=== PATIENT | male | born 1985 | race Caucasian/White ===

== ENCOUNTER 2018-07-18 23:30 | Emergency (ER) | payer OTHER, SELFPAY ==
[2018-07-18 23:32] VITALS: BP 141/79; PULSE 76; RESP 15; TEMP 36.7; BMI 30.5
[2018-07-19] MEDS: DiphenhydrAMINE 50 MG/ML Syringe 25 MG IV (00:31)
[2018-07-19] MEDS: Metoclopramide 10 MG/2 ML Vial 5 MG IV (00:32)
--- NOTE | 2018-07-19 00:39 | ED.VISSUMM ---
- ER Visit Summary Date of Service: 07/19/18 Chief Complaint: Headache, neck pain History of Present Illness: The patient is a 33 M presents with headache, neck pain. He states this has been ongoing for the past 3 days. Headache was gradual in onset and is mild. States it is currently 1 out of 10. Complains of stiffness in his neck and pain with range of motion. He denies any trauma. Denies fever or feeling ill. Denies other complaints. Physical Examination: Vitals are stable. Patient is afebrile. Alert no acute distress. Nontoxic. HEENT exam is unremarkable. Neck is supple. No meningismus. Mild left-sided paraspinal muscle tenderness. Lungs are clear and equal bilaterally. Heart is regular rate and rhythm. Abdomen is soft nontender nondistended. Extremities are unremarkable. Skin is warm and dry. No focal neurologic deficit. Remainder of exam is unremarkable. Emergency Department Course and Treatment: Patient given Reglan, Benadryl IV. CTA head and neck showed no acute process. On reevaluation, patient is feeling improved. Patient declines LP. At this time I do not feel it is necessary. Discussed signs and symptoms for which to return to the ED. He understands and will follow up with his primary care physician. He will return to ED for worsening complaints. Disposition: Discharge home Impression: Headache, resolved This note was generated with [employer] dictation software. It may contain incorrect words, spelling, and punctuation that were not noted in review of the chart prior to signing ED Disposition - Plan for ED Patient: Chief Complaint: Other, Pain/Inj Instructions: ED Cephalgia Unspecified Referrals: Carlos Rey MD [Primary Care Provider] -
--- NOTE | 2018-07-19 03:09 | ED.DEP ---
ED Disposition - Plan for ED Patient: Chief Complaint: Other, Pain/Inj Instructions: ED Cephalgia Unspecified Referrals: Carlos Rey MD [Primary Care Provider] -
[2018-07-19 03:16] VITALS: BP 132/84; PULSE 72; RESP 16; O2SAT 100
--- NOTE | 2018-07-19 23:59 | CT_ITS ---
HISTORY: PT STATED NECK STIFFNESS AND MILD HEADACHE FOR SEVERAL DAYS TECHNIQUE: Routine carotid CT angiogram protocol was performed without and with IV contrast. Nascet criteria using the distal ICAs for comparison were used for evaluation of stenoses. 3D reconstructions were reviewed. A radiation dose optimization technique was used for this scan. IV Contrast dosage and agent: 100 cc Isovue 370 contrast COMPARISON: None FINDINGS: AORTIC ARCH AND BRANCHES: Normal anatomy, patent. RIGHT CCA: No occlusion, significant stenosis or dissection. RIGHT ICA: No occlusion, significant stenosis or dissection. LEFT CCA: No occlusion, significant stenosis or dissection. LEFT ICA: No occlusion, significant stenosis or dissection. RIGHT VERTEBRAL ARTERY: No occlusion, significant stenosis or dissection. LEFT VERTEBRAL ARTERY: No occlusion, significant stenosis or dissection. NECK SOFT TISSUES: Unremarkable. BONES: Unremarkable. CT/CTA Neck W/WO Contrast IMPRESSION: Unremarkable CT angiogram of the neck. No suspicious findings. Individualized dose optimization techniques were used for this CT. at 0209 Reported and signed by: Wilmer Johnson MD Electronically Signed: Wilmer Johnson, at 2:07 EST Tel , Service support ,
--- NOTE | 2018-07-19 23:59 | CT_ITS ---
Exam: CTA brain without and with contrast HISTORY: PT STATED NECK STIFFNESS AND MILD HEADACHE FOR SEVERAL DAYS TECHNIQUE: Routine [place]/brain CT angiogram protocol was performed before and following IV contrast. 3D reconstructions were reviewed. A radiation dose optimization technique was used for this scan. IV Contrast dosage and agent: 100 cc Isovue 370 contrast COMPARISON: None FINDINGS: The ventricles are normal in size. Normal aparicio-white matter differentiation. No intracranial mass, hemorrhage, or acute disease. Posterior fossa structures are unremarkable. No suspicious extra-axial fluid collection. Following contrast injection, no pathologic enhancement or suspicious lesion. As visualized, the mastoids and paranasal sinuses are clear. CTA brain and [place]: Normal opacification and filling of the carotid and vertebrobasilar systems. The vertebral arteries are codominant. Normal filling of the anterior, middle, and posterior screw were arteries. No vascular malformation, aneurysm, or vessel occlusion. CT/CTA Head W/WO Contrast IMPRESSION: 1. Normal CT brain without and with contrast. 2. No arterial dissection, vessel occlusion, or aneurysm. Individualized dose optimization techniques were used for this CT. at 0203 Reported and signed by: Wilmer Johnson MD Electronically Signed: Wilmer Johnson, at 2:01 EST Tel , Service support ,
== END 2018-07-19 03:19 | disposition home or self-care (01) ==
LOC: ED 07-19 00:21
PROVIDERS: Emergency Provider Emergency Medicine; Family Provider Family Medicine; PCP Family Medicine
DX: R51 Headache (principal); M54.2 Cervicalgia
CPT/HCPCS: 70496; 70498; 99285; Q9967

== ENCOUNTER → 2018-09-24 08:48 | Outpatient (CLI) | payer OTHER, SELFPAY ==
[2018-09-24 10:43] LABS: BUN 17 mg/dL (7-18); Creatinine, Serum 1.08 mg/dL (0.70-1.30); Glucose 79 mg/dL (74-106)
[2018-09-24 10:44] LABS: Anion Gap 7 (5-15); BUN/Creat Ratio 15.7 RATIO (10-20); Calcium,Total 8.5 mg/dL (8.5-10.1); Chloride 106 mmol/L (98-107); Cholesterol 171 mg/dL (200); EST Glomerular Filtration Rate 83 mL/min (>60); Est Glom Filt Rate - Afr Amer 100 mL/min (>60); High Density Lipoprotein 28 mg/dL; Sodium Level 139 mmol/L (136-145); Triglycerides 166 mg/dL; Very Low Density Lipoprotein 33 mg/dL (5-40)
== END ==
PROVIDERS: Family Provider Family Medicine; PCP Family Medicine; Visit Provider Family Medicine
DX: Z00.00 Encounter for general adult medical examination without abnormal findings (principal)
CPT/HCPCS: 36415; 80048; 80061

== ENCOUNTER → 2018-12-21 07:57 | Outpatient (CLI) | payer OTHER, SELFPAY ==
[2018-12-21 11:39] LABS: HIV - WCH Non-Reactive (Nonreactive)
[2018-12-21 12:13] LABS: Color, Urine Yellow (Yellow); Glucose, Dipstick Normal (Normal); Ketone-Dipstick Negative (Negative); Leukocyte Esterase-Dipstick Negative /ul (Negative); Nitrite-Dipstick Negative (Negative); Occult Blood-Urine Negative /ul (Negative); Protein-Dipstick Negative (Negative); Urine Bilirubin Dipstick Negative (Negative); Urine Clarity Clear (Clear); Urine Urobilinogen Normal (Normal)
== END ==
PROVIDERS: Family Provider Family Medicine; PCP Family Medicine; Visit Provider Family Medicine
DX: Z00.00 Encounter for general adult medical examination without abnormal findings (principal)
CPT/HCPCS: 36415; 81002; 86703

== ENCOUNTER → 2019-08-26 11:44 | Outpatient (CLI) | payer OTHER, SELFPAY ==
[2019-08-26 13:23] LABS: Absolute Lymphocyte Count 1.98 X10^3/uL (0.83-4.51); Absolute Neutrophil Count 6.2 X10^3/uL (2.0-7.7); Basophil# 0.04 X10^3/uL; Basophil% 0.5 % (0-1); Eosinophil# 0.01 X10^3/uL; Eosinophils% 0.1 % (0-5); Hematocrit 47.8 % (40-54); Hemoglobin 15.8 g/dL (13.0-16.5); Lymphocyte # 1.98 X10^3/ul (4.0); Lymphocyte % 22.4 % (19-41); Mean Corp Hgb Conc 33.1 g/dL (32-36); Mean Corpuscular Hgb 29.1 pg (27.0-32.0); Mean Platelet Vol. 9.8 fl (6.2-12.0); Monocyte# 0.61 X10^3/uL; Monocyte% 6.9 % (0-10); NRBC Flagged by Analyzer 0 % (0-5); Neutrophil # 6.17 X10^3/uL (2.7-7.7); Neutrophil % 69.9 % (47-70); Platelet Count 402 K/mm3 (150-450); RBC Distribution Width CV 11.9 % (11.6-14.6); RBC Distribution Width SD 38.4 fl (35.1-43.9); Red Blood Count 5.43 M/mm3 (4.6-6.2); White Blood Count 8.8 K/mm3 (4.4-11.0)
[2019-08-26 14:03] LABS: ALB/GLOB Ratio 1.3 RATIO (0.9-2.4); AST(SGOT) 33 U/L (15-37); Alanine Aminotransfer ALT/SGPT 75 U/L (16-61); Albumin, Serum 4.6 g/dL (3.2-5.0); Alkaline Phosphatase 104 U/L (45-117); Anion Gap 7 (5-15); BUN 11 mg/dL (7-18); BUN/Creat Ratio 8.6 RATIO (10-20); Calcium,Total 9.4 mg/dL (8.5-10.1); Chloride 106 mmol/L (98-107); Creatinine, Serum 1.28 mg/dL (0.70-1.30); EST Glomerular Filtration Rate 68 mL/min (>60); Est Glom Filt Rate - Afr Amer 82 mL/min (>60); Globulin 3.5 g/dL (2.2-4.2); Glucose 92 mg/dL (74-106); Potassium 4.1 mmol/L (3.5-5.1); Protein, Total 8.1 g/dL (6.4-8.2); Sodium Level 137 mmol/L (136-145)
== END ==
PROVIDERS: PCP Family Medicine; Referring Provider Family Medicine; Visit Provider Family Medicine
DX: R10.9 Unspecified abdominal pain (principal)
CPT/HCPCS: 36415; 80053; 85025

== ENCOUNTER 2019-08-26 20:59 | Emergency (ER) | payer OTHER, SELFPAY ==
[2019-08-26 21:01] VITALS: BP 140/84; PULSE 110; RESP 15; TEMP 36.4; O2SAT 99; BMI 31.3
--- NOTE | 2019-08-26 21:25 | CT_ITS ---
STUDY: CT ABDOMEN AND PELVIS WITHOUT CONTRAST REASON FOR EXAM: Male, 34 years old. Right flank pain. RADIATION DOSAGE (If Supplied By Facility): CTDIvol = ( 9.35 ) mGy, DLP = ( 469.66 ) mGycm TECHNIQUE: Transaxial images were obtained from the dome of the diaphragm to the symphysis pubis without oral contrast, and without intravenous contrast. Sagittal and coronal images were reconstructed. Individualized dose optimization techniques were used for this CT. COMPARISON: None. FINDINGS: The visualized lung bases are unremarkable. The visualized portions of the heart are within normal limits. Normal liver. Normal gallbladder and extrahepatic biliary system. Normal spleen. Normal pancreas. Normal bilateral adrenal glands. Normal right kidney. Normal left kidney. Normal visualized stomach. Normal small intestine. Normal colon. The appendix is visualized and appears normal. Normal abdominal aorta. Normal inferior vena cava. Normal retroperitoneum. Normal urinary bladder. Normal abdominal wall. Normal osseous structures. CT/Abdomen/Pelvis without Cont IMPRESSION: Normal unenhanced CT of the abdomen and pelvis. Electronically Signed: Noah Falk MD at 22:06 EST , Service support ,
[2019-08-26] MEDS: 0.9% Normal Saline 1,000 ML 125 ML IV (21:41)
--- NOTE | 2019-08-26 21:58 | ED.DCSUM_ITS ---
- ER Visit Summary Date of Service: 08/26/19 Chief Complaint: [Abdominal pain] History of Present Illness: The patient is a 34 M [presents the emergency department complaint of abdominal pain and he said for last 2 to 3 days. Patient actually states that he has had some pain since [place] off-and-on but more continuous over the last 2 to 3 days. Patient has had decreased appetite today. Patient was seen by his primary care physician in the office today for the same complaint. Patient states pain is mostly right lower quadrant and at times will radiate to his testicle. Patient will have some discomfort in his right back. He is never had history of kidney stones. He denies urinary symptoms. Said no fever. He denies diarrhea. Denies blood in the stool or black tarry stool. No family history of inflammatory bowel disease.] Physical Examination: [HEENT-PERRLA, EOMI. Cranial nerves II through XII grossly intact. TMs clear. Mucous membranes moist. No adenopathy. Cardiovascular-regular rate and rhythm without murmur or ectopy Lungs-clear to auscultation, chest wall stable without crepitus or subcu emphysema Abdomen-normoactive bowel sounds, soft. Patient has some tenderness palpation over right lower quadrant with some guarding. There is no rebound, rigidity, or peritoneal signs. Negative heel strike. Negative Rovsing's. Extremities-intact ?4, normal range of motion, normal pulses, atraumatic] Test Results: [CBC with differential obtained showed a white count of 13.4, hemoglobin 15, hematocrit 45, platelets 398. CT scan of the abdomen and pelvis without contrast showed normal appendix and essentially nothing acute.] C hemistries unremarkable. LFTs showed an alk phos of 98, ALT 67 and AST of 25. Urinalysis was normal. Emergency Department Course and Treatment: [Discussed results with patient and at this point there is nothing surgical responsible for her symptoms. He did have blood work earlier today and his white blood cell count did go up was possible he may be coming down with a viral illness.] Treatment Plan: [Patient advised to follow-up with his primary care physician within next 3 to 5 days. Patient advised to return if worsening pain, fever, vomiting, or condition should worsen anyway.] Disposition: [Discharged home in stable condition] Impression: [Abdominal pain-etiology uncertain] This note was generated with Dragon dictation software. It may contain incorrect words, spelling, and punctuation that were not noted in review of the chart prior to signing ED Disposition - Plan for ED Patient: Referrals: Carlos Rey MD [Primary Care Provider] -
[2019-08-26 22:00] LABS: Bacteria 0 SEEN /hpf (None Seen); Mucous, Urine 0 SEEN /hpf (<or=2+); Red Blood Cells-Urine 0 SEEN /hpf (0-5); Squamous Epithelial Cells - UA 0 SEEN /hpf (0-5); White Blood Cells 0 SEEN /hpf (0-5)
[2019-08-26 22:01] LABS: Color, Urine Yellow (Yellow); Glucose, Dipstick Normal (Normal); Ketone-Dipstick 5 mg/dl (Negative); Leukocyte Esterase-Dipstick Negative /ul (Negative); Nitrite-Dipstick Negative (Negative); Occult Blood-Urine Negative /ul (Negative); Protein-Dipstick Negative (Negative); Urine Bilirubin Dipstick Negative (Negative); Urine Clarity Clear (Clear); Urine Urobilinogen Normal (Normal)
[2019-08-26 22:06] LABS: Absolute Neutrophil Count 9.2 X10^3/uL (2.0-7.7); Basophil# 0.04 X10^3/uL; Basophil% 0.3 % (0-1); Eosinophil# 0.07 X10^3/uL; Eosinophils% 0.5 % (0-5); Hematocrit 45.3 % (40-54); Hemoglobin 15.2 g/dL (13.0-16.5); Lymphocyte % 23.8 % (19-41); Mean Corp Hgb Conc 33.6 g/dL (32-36); Mean Corpuscular Hgb 29.3 pg (27.0-32.0); Mean Corpuscular Volume 87.3 fL (80-94); Mean Platelet Vol. 9.6 fl (6.2-12.0); Monocyte# 0.91 X10^3/uL; Monocyte% 6.8 % (0-10); NRBC Flagged by Analyzer 0 % (0-5); Neutrophil # 9.18 X10^3/uL (2.7-7.7); Neutrophil % 68.4 % (47-70); Platelet Count 398 K/mm3 (150-450); RBC Distribution Width CV 11.9 % (11.6-14.6); RBC Distribution Width SD 38.1 fl (35.1-43.9); Red Blood Count 5.19 M/mm3 (4.6-6.2); White Blood Count 13.4 K/mm3 (4.4-11.0)
[2019-08-26 22:24] LABS: ALB/GLOB Ratio 1.3 RATIO (0.9-2.4); AST(SGOT) 25 U/L (15-37); Alanine Aminotransfer ALT/SGPT 67 U/L (16-61); Albumin, Serum 4.4 g/dL (3.2-5.0); Alkaline Phosphatase 98 U/L (45-117); Anion Gap 5 (5-15); BUN 15 mg/dL (7-18); BUN/Creat Ratio 11.7 RATIO (10-20); Calcium,Total 9.1 mg/dL (8.5-10.1); Chloride 105 mmol/L (98-107); Creatinine, Serum 1.28 mg/dL (0.70-1.30); EST Glomerular Filtration Rate 68 mL/min (>60); Est Glom Filt Rate - Afr Amer 82 mL/min (>60); Estimated Creatinine Clearance 75.31 ml/min; Globulin 3.4 g/dL (2.2-4.2); Glucose 100 mg/dL (74-106); Potassium 3.5 mmol/L (3.5-5.1); Protein, Total 7.8 g/dL (6.4-8.2); Sodium Level 139 mmol/L (136-145)
--- NOTE | 2019-08-26 22:27 | ED.DEP ---
ED Disposition - Plan for ED Patient: Instructions: ABDOMINAL PAIN, Unkown Cause, (Male) Referrals: Carlos Rey MD [Primary Care Provider] - 3-5 Days
[2019-08-26 22:34] VITALS: BP 125/76; PULSE 82; RESP 16; O2SAT 97
== END 2019-08-26 22:39 | disposition home or self-care (01) ==
LOC: ED 21:29
PROVIDERS: Emergency Provider Emergency Medicine; PCP Family Medicine
DX: R10.31 Right lower quadrant pain (principal)
CPT/HCPCS: 74176; 80053; 81001; 85025; 96360; 99283; J7030; A4216